=== PATIENT | female | born 1940 | race Asian ===

== ENCOUNTER 2016-09-14 14:40 | Outpatient (CLI) | payer MEDICARE, MEDICAID ==
[~2016-09-14] VITALS: Ht 156.2 cm; Wt 55.0 kg
[2016-09-14 14:57] VITALS: BP 138/65; PULSE 110; RESP 18; Ht 156.2 cm; Wt 55.0 kg
[2016-09-14] MEDS ORDERED: NIFE60TA2 PO (15:01)
[2016-09-14] MEDS ORDERED: OMEP20CA16 PO (15:01)
[2016-09-14] MEDS ORDERED: MEGE400O PO (15:01)
[2016-09-14] MEDS ORDERED: LOSA1TAB9 PO (15:01)
--- NOTE | 2016-09-14 16:21 | CONS ---
[facility] INITIAL OUTPATIENT CONSULTATION NOTE DATE OF CONSULTATION: 09/14/2016 PLACE OF SERVICE: [facility] ASSESSMENT AND PLAN: A very pleasant but unfortunate 76-year-old lady with a large multifocal and central hepatic metastasis from her sigmoid colon as well as possible other sites of disease, which is unfortunately not amenable to surgical resection. She also does not present with a bile duct obstruction as the cause of her hyperbilirubinemia and fits better with diagnosis of parenchymal disease due to replacement from this large mass. The left lateral segment of her liver does have a larger than normal-appearing bile duct to my review on the CT scan done in 06/2016 of the chest. In rare instances, a plastic stent or a metallic stent placed internally through the common bile duct into the left hepatic duct alleviates some of the compression that the common bile duct has from the central mass of the liver and sometimes allow us to see decrease in the bilirubin. This may open up more opportunities for local treatments of the liver. I certainly do think transarterial chemoembolization or perhaps better bland embolization may have a role, although I am not optimistic that it would change the clinical picture too much. The best option that I see for this nice lady is to get to systemic chemotherapy. I doubt that she will be able to tolerate aggressive multimodal chemotherapy, but she may benefit from palliative-type chemotherapy and if she improves enough, we could increase the aggressiveness of the treatment. We can also consider concomitant treatment with bland embolization perhaps assisted by consideration for ERCP and stenting to see if that would improve the liver function and injury parameters. I explained all this in detail to the patient and her daughter and their friend, and answered all their questions to the best of my ability. I used diagrams as well as careful review of her available pertinent images, and I believe that they understood the main points of that discussion and agreed with the plans. I also discussed all of the above on the phone with Dr. Beth Mike as well as with Dr. Vasile Sim at [facility]. With the above assessment, I have recommended the followin. Proceed with systemic palliative chemotherapy. 2. Consider bland chemoembolization. 3. Consider GI consultation with ERCP and possible stenting of the left biliary system. 4. Supportive care consultation and emphasis on quality of life. 5. Avoid heroic measures and clarify code status with the patient and family. 6. Continued multidisciplinary treatment. Thank you again for allowing us to participate in the care of this very pleasant lady and her wonderful family. If there are any questions, please feel free to contact me at [phone]. UPDATED CLINICAL SUMMARY: A very pleasant but unfortunate 76-year-old lady with comorbid issues including hypertension and otherwise fairly healthy, who unfortunately around early 2016 started noticing a 20 to 30 pound weight loss and eventually presented to medical care in 06/2016 in [place], where she was found to have a large 16 cm mass in the central portion of her liver as well as multiple other lesions in the liver and subcentimeter nodules in the lungs which could not be further characterized. There was also a cystic lesion in the left adnexa and perhaps some studding of the omentum on the CT scan. She has had a port placed and has not had any chemotherapy. She has had hyperbilirubinemia which in 06/2016 was 2.3. Alkaline phosphatase is 836. Albumin 3.8 at that time. Platelet count 420. CO2 of 27. INR 1.0. COMORBIDITIES: 1. Above-mentioned liver mass thought to be from sigmoid colon cancer, which was found to be on colonoscopy in 06/2016 in [place], at 25 to 28 cm, partially obstructing (half circumferential) tumor which on biopsy was a moderately- differentiated colonic adenocarcinoma. Status post Port-A-Cath placement. 2. Hypertension. 3. A 20 pound weight loss over the last number of months. 4. A 4.2 cm left adnexal mass. 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 The patient herself reports no significant pain and no nausea or vomiting, no fevers or chills, and her main complaint is fatigue and weight loss. She has also noted herself to be yellow for the last number of weeks. ALLERGIES: NO KNOWN DRUG ALLERGIES. MEDICATIONS: The patient listed as her home medications: 1. Hyzaar. 2. Megace 3 Procardia. 4 Omeprazole. SOCIAL HISTORY: The patient is single. She has 1 daughter who lives in [place]. She recently was relocated from [place], which she moved to from [place] in [place], to [place] to be closer to her daughter and to get her medical care here. No history of smoking, drinking, or intravenous drug use. FAMILY HISTORY: The patient's father at age of 50 of unknown causes. Her mother at age 70 without any known medical problems. She has 1 healthy brother and 1 healthy daughter living in [place] as mentioned above. REVIEW OF SYSTEMS: Other than the above-mentioned, there are no other pertinent positives or pertinent negatives in a complete 14-point review of systems. PHYSICAL EXAMINATION: GENERAL: The patient appears to be a very pleasant lady of [place] descent , sitting in a chair, appearing malnourished and cachectic, but otherwise comfortably. BMI is 22.5. VITAL SIGNS: Temperature 97.7, blood pressure 138/65, pulse 110, respiratory rate 18, pulse oximetry 99% on room air. HEENT: Normocephalic and atraumatic. Extraocular muscles and hearing are grossly intact bilaterally and symmetrically. Sclerae are nonicteric. Oral cavity is clear; oral mucosa appeared to be pink and moist. Dentition: poor. NECK: Supple. There is no lymphadenopathy or JVD. There is no submental, submandibular or supraclavicular lymphadenopathy. CHEST: Rises symmetrically with each breath; patient is breathing comfortably. There are no audible wheezes, rales or rhonchi on the gross exam. HEART: Pulse is regular and palpable on the right wrist. Capillary refill was normal. Carotid pulses are palpable bilaterally and symmetrically in the neck. EXTREMITIES: Lower extremities contain no pitting edema around the ankles bilaterally and symmetrically. ABDOMEN: Protuberant but otherwise soft and nontender. You can feel a mass corresponding to her liver and the central mass that it has in the upper mid portions of the abdominal cavity. There is no obvious evidence of ascites. No caput medusae or engorged subcutaneous veins. There are no peritoneal signs or guarding. SKIN: Appears to be pink and feels warm to touch. NEUROLOGIC: Awake, alert, and follows commands appropriately. LABORATORY DATA: Reviewed above. IMAGING: Reviewed above. Dictated By: AKBAR OCONNELL/NTS Conf#: [id number] DID#: [id number] CC: BETH MIKE MD; VASILE SIM MD;*EndCC* MTDD
== END 2016-09-14 16:53 | disposition home or self-care (01) ==
LOC: HPC 14:40
PROVIDERS: ATTEND Transplant Surgery
DX: C78.7 Secondary malignant neoplasm of liver and intrahepatic bile duct (principal); C18.7 Malignant neoplasm of sigmoid colon; I10 Essential (primary) hypertension; R63.4 Abnormal weight loss; Z68.22 Body mass index [BMI] 22.0-22.9, adult
CPT/HCPCS: G0463